=== PATIENT | female | born 1985 | race Caucasian/White ===

== ENCOUNTER 2023-06-19 16:00 | Emergency (ER) | payer OTHER, SELFPAY ==
[2023-06-19 16:12] VITALS: BP 134/90
[2023-06-19 16:40] LABS: % Basophils 0.4 % (0-2); % Eosinophils 0.9 % (0-6); % Immature Granulocytes 0.2 % (0-0.5); % Lymphocytes 24.4 % (20.5-51.1); % Monocytes 10.6 % (1.7-9.3); % Neutrophils 63.5 % (42.2-75.2); Absolute Eosinophils 0.1 10^3/uL (0-0.7); Absolute Lymphocytes 1.4 10^3/uL (1.2-3.4); Absolute Monocytes 0.6 10^3/uL (0.1-0.6); Absolute Neutrophils 3.6 10^3/uL (1.4-6.5); Hematocrit 40.1 % (37.0-47.0); Hemoglobin 14.1 g/dL (12.0-16.0); Mean Corp Hgb Conc. 35.2 g/dL (33.0-37.0); Mean Corpuscular Hgb 28.1 pg (27.0-31.0); Mean Corpuscular Volume 79.9 fL (81.0-99.0); Mean Platelet Volume 8.9 fL (7.4-10.4); Nucleated Red Blood Cells % 0 %; Platelet Count 263 10^3/uL (130-400); Red Blood Cell Count 5.02 10^6/uL (4.20-5.40); Red Cell Dist. Width 12.2 % (11.5-14.5); White Blood Cell Count 5.7 10^3/uL (4.8-10.8)
[2023-06-19 16:59] LABS: ALT (SGPT) 77 U/L (0-35); AST (SGOT) 68 U/L (14-36); Albumin 4.4 g/dl (3.5-5.0); Alkaline Phosphatase 113 U/L (38-126); Blood Urea Nitrogen 14 mg/dl (7-17); Calcium 9.8 mg/dl (8.4-10.2); Carbon Dioxide 23 mmol/L (22-30); Chloride 105 mmol/L (98-107); Glucose 97 mg/dl (70-99); Lipase 82 U/L (23-300); Sodium 134 mmol/L (135-145); Total Bilirubin 0.5 mg/dl (0.2-1.3); Total Protein 7.3 g/dl (6.3-8.2); eGFR > 60.00
--- NOTE | 2023-06-19 19:29 | ED.GENMED ---
History of Present Illness
General
Chief Complaint: Abdominal Symptoms
Source: patient
Exam Limitations: none
Time Seen by Provider: 06/19/23 19:17
Travel History
Have you had any contact with someone who has COVID-19?: No
Do you have any symptoms of coronavirus? Fever > 100 degrees, chills, cough, shortness of breath, sore throat, loss of taste or smell, muscle aches, or headache?: No
History of Present Illness
History of Present Illness:
This is a 38 year old female that comes in with c/o vomiting and diarrhea. States that she is 8 weeks and the family all feel that they had food Poisoning. States that she has not eaten any food since Saturday,. States that she has vomiting
and diarrhea for over 24 hours. States that they both have slowed down some today. States that last night her Peripheral vision went dark. States that her abd is sore and she is still nauseated. States that she is occasionally dizzy. Denies any
fever, chills, chest pain, SOB, headache, urinary burning.
Past History
Past History
ED Past Medical History: None; Negative Asthma, HTN, Hypercholesterolemia or NIDDM
ED Past Surgical History:
Social History
Tobacco: Former smoker
Alcohol: None
Personal:
Living: with family
Review of Systems
Review of Systems
All Other Systems: ROS reviewed and negative except as documented in HPI and ROS
Constitutional: Reports no symptoms; Denies fever or chills
EENT: Reports no symptoms
Respiratory: Reports no symptoms; Denies cough or trouble breathing
Cardiac: Reports no symptoms; Denies chest pain
ABD/GI: Reports nausea, vomiting, diarrhea and other (abd is sore)
: Reports no symptoms; Denies dysuria, frequency or urgency
Musculoskeletal: Reports no symptoms
Skin: Reports no symptoms
Neurological: Reports dizzy (occasionally ); Denies headache
Psychiatric: Reports no symptoms
Phy Exam
General Physical Exam
General Presentation: well appearing and no apparent distress
General age: appears stated age
General Skin: warm and dry
General Habitus: normal
General Mental: alert
General Hydration: appears well hydrated
ENT Exam
ENT Exam: TM's normal, pharynx normal and neck supple
Eye Exam
Eye Exam: EOMI
Cardiovascular Exam
Cardiovascular Exam: regular rate/rhythm, no edema, no murmur and normal peripheral pulses
Pulmonary Exam
Pulmonary Exam: lungs clear, no respiratory distress, no rales, chest non tender, no crackles, no rhonchi, no wheezing and no cough
Gastrointestinal Exam
Gastrointestinal Exam: normal bowel sounds, soft, no organomegaly, no pulsatile mass, non distended and tender (states that she is generally sore with palpation)
Musculoskeletal Exam
Musculoskeletal Exam: full ROM and no edema
Skin Exam
Skin Exam: normal color, warm/dry, no rash and no petechia
Psychiatric Exam
Psychiatric Exam: normal mood/affect
Course
Orders/Labs/Results
Orders:
Orders
06/19/23 16:21
Complete Blood Count/With Diff Urgent
Comprehensive Metabolic Panel Urgent
Lipase Urgent
06/19/23 19:29
0.9% Sodium Chloride 1000 ml [Nss] 1,000 ml IV BOLUS
Metoclopramide [Reglan] 10 mg IV NOW STA
06/19/23 19:[address] Non Medication Order As Directed
Physician Order: Please give patient Crackers after medication.
Above order entered?: Yes
06/19/23 20:49
US 1st Trimester Urgent
Comment: Vomiting and diarrhea, abd sore
Reason For Exam: baby check,
Abnormal Lab Results
06/19/23
16:21
MCV 79.9 L fL
(81.0-99.0)
Monocytes % 10.6 H %
(1.7-9.3)
Sodium 134 L mmol/L
(135-145)
AST 68 H U/L
(14-36)
ALT 77 H U/L
(0-35)
06/19/23 16:21
06/19/23 16:21
AST/ALT mildly elevated. Lipase normal at 82
Vital Signs
Initial and Last Documented VS:
Initial Vital Signs
Temp Pulse Resp BP Pulse Ox
99.0 F 99 16 134/90 99
06/19/23 16:12 06/19/23 16:12 06/19/23 16:12 06/19/23 16:12 06/19/23 16:12
Last Documented Vital Signs
Temp Pulse Resp BP Pulse Ox
99.0 F 74 18 112/67 100
06/19/23 16:12 06/19/23 22:16 06/19/23 22:16 06/19/23 22:16 06/19/23 22:16
MDM/Problems Addressed
Differential Diagnosis Includes:
Gi viral syndrome. Food poisoning.
MDM/Problems Addressed:
This is a 38 year old female that comes in with c/o nausea, vomiting, diarrhea. states that she has not eaten since Saturday. States that the family has all been sick but she is 8 weeks . State that this has slowed today but she is only able
to drink water.
Will give IV fluids and Reglan. Will attempt to feed patient with crackers before discharge.
back into see patient. Patient is feeling better. Encouraged patient to increase her water intake to 8-8oz glasses daily. Stay away from Milk and milk products until the diarrhea stops. Follow up with the family doctor and her CONTROL ANALYST for further
evaluation. Return with any concerns,.
Chronic conditions affecting care:
NA
Acute Exacerbation and/or Progression of Chronic Illness:
NA
*Pulse Oximetry
Patient hypoxic: no
*EKG
Rate: EKG- N/A
*Lasting Room Machine Operator Interpretation
Rate: Lasting Room Machine Operator- N/A
*Critical Care Note
Total Time (30-74mins, 75-104mins- exclusive of procedures): Not Applicable
ED Attending Note
-
Portions of this chart may have been created with voice recognition software.� Occasional wrong word or��sound alike� substitutions may have occurred due to the inherent limitations of voice recognition software.
Discharge Plan
Departure
Patient Disposition: Home (Routine Discharge)
Date of Disposition: 06/19/23
Time of Disposition: 22:18
Patient with high blood pressure during this ER visit?: No
Condition: Good
Covid-19: Not Applicable
Discharge Problem:
Nausea, vomiting and diarrhea
Instructions: Diarrhea in adolescents and adults, Nausea and Vomiting, Adult (DC)
Referrals:
Gabino Lacy MD [Family Provider] - Call in 1-3 days for appt
Activity Restrictions/Additional Instructions:
As discussed, your blood work shows that your liver enzymes are slightly elevated. This can happen with a viral illness. Please increase your water intake to 8-8oz glasses daily. Stay way from milk and milk products as long as you have diarrhea as
this is hard for the gut to digest. Chicken, rice and potatoes are easily digested. Bananas are also binding. Please increase your water intake to 8-8oz glasses daily. Follow up with the family doctor or your CONTROL ANALYST. IF YOU HAVE ANY OTHER CONCERNS
PLEASE RETURN TO THE EMERGENCY ROOM.
Interventions
Interventions:
*Risk Screen - Suicide Last Done: 06/19/23 19:20
*General Assessment Last Done: 06/19/23 19:22
*Neglect/Abuse Screening Last Done: 06/19/23 19:20
*ED COVID-19 Vaccine History Last Done: 06/19/23 19:22
[facility]Mfrfaw[facility] Assessment Last Done: 06/19/23 19:21
Discharge Date and Time
Print Language: SERBIAN
[2023-06-19] MEDS: NSS 1000 IV (19:46)
[2023-06-19 22:16] VITALS: BP 112/67
== END 2023-06-19 22:28 | disposition home or self-care (01) ==
LOC: EMR 16:00
PROVIDERS: Emergency Medicine; EMERGENCY PHYSICIAN Emergency Medicine; FAMILY PHYSICIAN Internal Medicine
DX: O21.9 Vomiting of pregnancy, unspecified (principal); O26.891 Other specified pregnancy related conditions, first trimester; R19.7 Diarrhea, unspecified; Z3A.08 8 weeks gestation of pregnancy
CPT/HCPCS: 99284; 96360; 80053; 83690; 85025